=== PATIENT | male | born 1950 | race Caucasian/White ===

== ENCOUNTER 2017-08-02 18:57 | Emergency (ER) | payer OTHER ==
[~2017-08-02] VITALS: Ht 167.6 cm; Wt 138.6 kg
[~2017-08-02 18:57] MED LIST: ALBUTEROL17 G1 IH; AMITRIPTYLINE H25 MG PO; ATIVAN0.5 MG PO; BENADRYL25 MG PO; CARDIZEM CD120 M1 PO; CARDIZEM60 MG PO; CEPHALEXIN500 MG PO; CIPRO500 MG PO; CIPROFLOXACIN500 M1 PO; CLOPIDOGREL75 MG PO; COUMADIN,JANTOVE1 MG PO; COUMADIN1 MG PO; COUMADIN3 MG PO; COUMADIN4 MG PO; COUMADIN5 MG PO; CYANOCOBALAM1000 MCG PO; CYCLOBENZAPRINE5 MG PO; CYMBALTA60 MG PO; Cardizem PO; DILTIAZEM PO; DOCUSATE SODIU100 MG PO; DULCOLAX10 MG PR; DULERA 200 MCG/13 GM IH; DUONEB 2.5-0.5 M3 ML AEROSOL; DUONEB 2.5-0.5 M3 ML IH; EFFEXOR XR75 MG PO; ELAVIL25 MG PO; ENDOCET 5-3251 EACH PO; FLECTOR 1.3%1 PATC1 TD; FLEXERIL5 MG PO; FLOMAX0.4 MG PO; FLOVENT 22120 INHALA IH; GABAPENTIN300 MG PO; GABAPENTIN600 MG PO; GLUCOPHAGE1000 MG PO; GLUCOTROL XL10 MG PO; GLUCOTROL10 MG PO; GLUCOTROL5 MG PO; Glucotrol PO; IBUPROFEN800 MG PO; INVOKANA300 MG PO; K-DUR20 MEQ PO; KETOPROFEN 5% TP; KETOPROFEN TP; LANOXIN,DIGI0.125 MG PO; LANOXIN125 MCG PO; LASIX20 MG PO; LASIX40 MG PO; LASIX80 MG PO; LEVEMIR100 UNIT/2 SC; LEVETIRACETAM750 MG PO; LIDOCAINE700 MG TD; LOPRESSOR25 MG PO; LOPRESSOR50 MG PO; LOVENOX150 MG/1 M SC; Lanoxin,Digitek PO; Lopressor PO; Lovenox SC; METFORMIN HCL1000 MG PO; METOPROLOL SUCC50 MG PO; METOPROLOL TART50 MG PO; MILK OF MAGN PO; MIRALAX17 GM PO; MOBIC15 MG PO; NOVOLOG 10100 UNITS/ SC; OMEPRAZOLE40 M1 PO; OXAYDO5 MG PO; OXYCODONE HCL5 MG PO; OXYCONTIN10 MG PO; PERCOCET 5/31 TABLET PO; POTASSIUM-9999 MG PO; PREDNISONE20 MG PO; PRINIVIL20 MG PO; PRINIVIL40 MG PO; PROTONIX40 MG PO; PROVENTIL,2.5 MG/3 M; PROVENTIL,2.5 MG/3 M IH; PYRIDIUM200 MG PO; REQUIP2 MG PO; REQUIP3 MG PO; REQUIP4 MG PO; ROXICODONE5 MG PO; SYMBICORT60 INHALAT IH; TAMSULOSIN HCL0.4 MG PO; TYLENOL REGULA325 MG PO; VIAGRA25 MG PO; VITAMIN B122500 MCG PO; VITAMIN D32000 UNI1 PO; VITAMIN D33000 UNIT PO; WARFARIN SODIUM4 MG PO; XOPENEX IH; ZANTAC150 M1 PO; ZESTRIL20 MG PO; Zantac PO; Zestril,Prinivil PO
[2017-08-02 20:10] LABS: APPEARANCE CLEAR ((CLEAR)); BILIRUBIN NEGATIVE; BLOOD NEGATIVE; COLOR YELLOW ((YELLOW)); GLUCOSE (STRIP) NEGATIVE; KETONES NEGATIVE; LEUKOCYTES NEGATIVE; NITRITE NEGATIVE; PROTEIN (STRIP) NEGATIVE; SPECIFIC GRAVITY 1.014 (1.000-1.030); UCUL ADDED? NO; UROBILINOGEN 0.2 MG/DL (0.2-1.0)
[2017-08-02 20:18] LABS: HEMATOCRIT 47.3 % (38.0-50.0); HEMOGLOBIN 15.8 G/DL (12.5-16.6); MCH 27.9 PG (29.0-34.0); MCHC 33.4 G/DL (30.0-36.0); MCV 83.4 FL (86-99); PLATELET COUNT 230 K/uL (156-360); RBC DIS.WIDTH-SD 45.4 % (39-53); RED BLOOD COUNT 5.67 M/uL (4.00-5.50); WHITE BLOOD COUNT 10.7 K/uL (4.1-10.2)
[2017-08-02 20:29] LABS: CHLORIDE 99 mEq/L (99-109); GLUCOSE 161 mg/dL (70-99); POTASSIUM 4.6 mEq/L (3.7-5.4); SODIUM 139 mEq/L (136-147)
[2017-08-02 20:33] LABS: CREATININE 1.1 mg/dL (0.6-1.3); GFR ESTIMATE (CALCULATED) > 59 mL/min/ (58.99-99999)
[2017-08-02 20:34] LABS: UREA NITROGEN (BUN) 24 mg/dL (9-23)
[2017-08-02 20:48] LABS: DIGOXIN 0.4 ng/mL (0.8-2.0)
[2017-08-02] MEDS ORDERED: ULTRAM50 MG PO (22:43)
[2017-08-02] MEDS ORDERED: VALTREX1000 MG PO (22:45)
[2017-08-02 23:20] VITALS: BP 116/68
== END 2017-08-02 23:21 | disposition home or self-care (01) ==
LOC: EME 18:57
DX: B02.9 Zoster without complications (principal); I48.91 Unspecified atrial fibrillation; E86.0 Dehydration; I11.0 Hypertensive heart disease with heart failure; I50.9 Heart failure, unspecified; J44.9 Chronic obstructive pulmonary disease, unspecified; E11.9 Type 2 diabetes mellitus without complications; K21.9 Gastro-esophageal reflux disease without esophagitis; G47.30 Sleep apnea, unspecified; G25.81 Restless legs syndrome; Z87.891 Personal history of nicotine dependence; Z88.5 Allergy status to narcotic agent; Z88.0 Allergy status to penicillin; Z88.1 Allergy status to other antibiotic agents
CPT/HCPCS: 71046; 71250; 74176; 80048; 80162; 81003; 83605; 83880; 85027; 85610; 85730; 93005; 99281; 99285; J2405; J7040